=== PATIENT | male | born 1950 | race Caucasian/White ===

== ENCOUNTER → 2018-02-27 16:38 | Outpatient (CLI) | payer MEDICARE, BC, SELFPAY ==
--- NOTE | 2018-02-27 16:42 | CT_ITS ---
STUDY: CTA OF THE ABDOMINAL AORTA AND BILATERAL LOWER EXTREMITIES REASON FOR EXAM: Male, 67 years old. Follow-up exam for aortic aneurysm repair. RADIATION DOSAGE (If Supplied By Facility): CTDIvol = ( 8.2 ) mGy, DLP = ( 1550 ) mGycm TECHNIQUE: Axial CT angiography multi-detector data acquisition was obtained from the dome of the liver to the level of the feet following intravenous administration of 100 ml of Isovue 370 contrast. Axial images and MIP images were reconstructed from the axial data set. Post-processing of the angiographic images was performed, with multiplanar reformation and 3D reconstruction. Individualized dose optimization techniques were used for this CT. TECHNICAL QUALITY: Good COMPARISON: 11/30/2015. Descriptors of Narrowing: None (0%) Mild (< 50%) Moderate (50-70%) Severe (70-90%) Subtotal/Total Occlusion (90-100%) Non-Evaluable (technically non-diagnostic FINDINGS: Abdominal aorta: There again is an aortic graft extending from just below the level of the renal arteries to the level of the bifurcation and extending into the common iliac arteries bilaterally unchanged since the previous examination. Flow is seen within the graft. Peripheralclots are again seen unchanged since the prior examination. There is no evidence of leakage. The maximum AP diameter of the abdominal aortic aneurysm is approximately 5.7 cm and is unchanged. Celiac and superior mesenteric arteries: Inferior mesenteric artery: No demonstrated narrowing. Right renal artery(arteries): No demonstrated narrowing. Left renal artery(arteries): No demonstrated narrowing. Right common iliac artery: Graft is present and is patent. Right external iliac artery: Atherosclerotic calcifications with mild stenosis. Right internal iliac artery: Ectatic with calcifications and mild stenosis. Left common iliac artery: Graft is present and is patent. Left external iliac artery: Atherosclerotic calcifications without significant stenosis. Left internal iliac artery: Ectatic with calcifications and mild stenosis. RIGHT LOWER EXTREMITY Right common femoral artery: Peripheral atherosclerotic calcifications without significant stenosis. Right profundus femoris: No demonstrated narrowing. Right superficial femoral: Minimal atherosclerotic calcifications distally without significant stenosis. Right popliteal artery: No demonstrated narrowing. Right tibioperoneal trunk: No demonstrated narrowing. Right anterior tibial artery: No demonstrated narrowing. Right posterior tibial artery: No demonstrated narrowing. Right peroneal artery: No demonstrated narrowing. LEFT LOWER EXTREMITY Left common femoral artery: Minimal atherosclerotic calcifications without significant stenosis. Left profundus femoris: No demonstrated narrowing. Left superficial femoral: No demonstrated narrowing. Left popliteal artery: No demonstrated narrowing. Left tibioperoneal trunk: No demonstrated narrowing. Left anterior tibial artery: No demonstrated narrowing. Left posterior tibial artery: No demonstrated narrowing. Left peroneal artery: No demonstrated narrowing. CT/CTA Abd w/Runoff W/WO Contrast IMPRESSION: 1. Status post to iliac graft in stable position since previous exam and is patent 2. False Pass aortic aneurysm unchanged in caliber since the previous exam. 3. No significant change since previous examination. 4. No flow-limiting stenosis is seen in the lower extremities with 3 vessels runoff to the lower legs. Electronically Signed: Gilles Briggs MD at 12:30 EST Tel , Service support ,
[2018-02-27 17:06] LABS: CREATININE FINGERSTICK 1.1 mg/dL (0.70-1.30)
== END ==
PROVIDERS: Family Provider Family Medicine; PCP Family Medicine; Referring Provider Surgery; Visit Provider Surgery
DX: I71.4 Abdominal aortic aneurysm, without rupture (principal)
CPT/HCPCS: 75635; Q9967

== ENCOUNTER 2018-03-31 08:02 | Observation (INO) | payer MEDICARE, BC, SELFPAY ==
[2014-02-16 15:36] VITALS: BMI 31.5
[2018-03-20 15:08] VITALS: BP 137/61; PULSE 59; RESP 16; TEMP 36.8; O2SAT 98; BMI 33.4
[2018-03-20 16:26] LABS: International Normalized Ratio 1.1; Prothrombin Time (Protime)PT. 14.5 SECONDS (11.7-14.9)
--- NOTE | 2018-03-26 11:08 | CASEMGMT ---
Call placed to patient to discuss discharge needs after upcoming surgery. Patient plans to return home with assistance from . Outpatient physical therapy is set up at [facility], will assist with transportation. Patient already has a walker, does not have shower seat, grab bars, or toilet riser. There is a bedroom and bathroom on the 1st level of the home. Patient has approx 11 steps from the garage to get into house. Informed patient that RN-CM will likely follow up after surgery. Mellisa Umana LPN Clinical Support
[2018-03-31] VITALS (11 sets, daily range): BP systolic 104–131; BP diastolic 50–69; PULSE 52–75; RESP 16; TEMP 36.1–36.9; O2SAT 95–99; BMI 33.4
--- NOTE | 2018-03-31 | KNEE_PTH ---
PATIENT: JESUS GUSTAFSON LOC: MS3 U#:[id number] AGE/SX: 67/M ROOM: [facility] [place]03/31/[address]: Dr. Pepe Tapia DO : 1950 BED: 1 DIS: 04/01/2018 SPEC #: [id number] RECD: 03/31/18 14:53 STATUS: PRO REQ #: [id number] ASAF: 03/31/18 00:[address]: Pepe Tapia DEPT: SURGICAL PATHOLOGY RECD BY: Edgar Freitas ENTERED: 03/31/18 14:53 SP TYPE: TOTAL KNEE OTHR DR: Jud Montero DO Tissues: Knee, NOS Procedures: Decalcification bone/plaque Surgery Specimen Level IV HEADER OPERATION: Total knee replacement PRE-OP DIAGNOSIS: Osteoarthritis right knee TISSUE SUBMITTED: Bone and soft tissue MICROSCOPIC DIAGNOSIS Bone and soft tissue, right knee, total knee replacement: Pieces of bone with degenerative osteoarthritic changes. Fibroadipose tissue, fibroconnective tissue and reactive synovial tissue. SJ:milan 04/03/18 MICROSCOPIC DESCRIPTION Slides are reviewed. GROSS DESCRIPTION Received is one container designated bone and soft tissue right knee. The specimen consists of multiple fragments of chun-yellow bone measuring in aggregate 16 x 10 x 1.5 cm. Also in the specimen container are multiple fragments of yellow-white soft tissue measuring in aggregate 12 x 7 x 2.5 cm. A number of bony fragments contain articular surfaces consistent with tibial plateau and femoral condyle and displaying prominent osteophyte formation, eburnation, and bone erosion. Kidney Puller sections are submitted in two cassettes as follows: 1 - soft tissue, 2 - bone after decalcification. / AM:milan 03/31/18 TC:5 [facility]: [id number], [id number]
[2018-03-31] MEDS: oxyCODONE HCl Cr 10 MG Tablet PO (08:53)
[2018-03-31] MEDS: Celecoxib 200 MG Capsule 400 MG PO (08:54)
[2018-03-31] MEDS: Acetaminophen 500 MG Tablet 1000 MG PO ×3 (08:54→22:22)
[2018-03-31] MEDS: Lactated Ringers 1,000 ML 999 ML IV (09:20)
[2018-03-31] MEDS: Cefazolin 2 GM in 0.9% Normal Saline 100 ML IV (10:23)
--- NOTE | 2018-03-31 11:40 | PCM.IMDPSTOP ---
Immediate Post-Op Note Date of Procedure: 03/31/18 Primary Surgeon/Physician: Pepe Tapia potato chip cooker machine: Lan Espinoza Pre-Operative Diagnosis: OA Right knee Post-Operative Diagnosis: same Surgery/Procedure Performed:: Right TKR Description of Surgical Findings:: see op note Estimated Blood Loss: 20cc Specimen's removed: bone Type of Anesthesia:: Spinal ASA Class: ASA3 Severe Disease - Admit VTE Documentation VTE Present on Admission: No VTE Mechan Device Prophylaxis: SCD's, Thigh High YVONNE Hose VTE Pharm Prophylaxis ordered?: Yes
--- NOTE | 2018-03-31 11:42 | PCM.OP.BLANK ---
Operative Report Date of Procedure: 03/31/18 Primary Surgeon/Physician: Pepe Tapia transcriber: Evelio Espinoza PA-C transcriber: Pre-Operative Diagnosis: OA Right knee Post-Operative Diagnosis: same Surgery/Procedure Performed: Right TKR Estimated Blood Loss: 20 cc Specimen's Removed: bone Type of Anesthesia: spinal ASA Class: 3 Implants: [Pamela Triathlon size 5 CR femur, size 6 tibia, 35 mm patella and 9 mm CS polyethylene (all components cemented) ] Indications: Patient has severe end-stage osteoarthritis diagnosed via x-rays in the knee. They have failed all forms of conservative measures including activity modification, injections, anti-inflammatories, use of assistive device. The patient has pain that affects on a daily basis and prevents him from doing things that they enjoyed. They have elected to undergo the above procedure. The risks of the procedure were discussed at length and their questions were answered. Procedure Description: The patient was greeted in the preoperative area. The [right ] knee was then marked with a surgical marker. Patient was then taken to or Suite 2. They were administered a dose of antibiotics as well as tranexamic acid. Once adequate anesthesia was obtained and airway was secured to placed in supine position on the operating room table. A well-padded tourniquet was placed on the affected extremity. Leg was then prepped and draped in the usual sterile fashion from the knee down. Ioban was used on the skin. Surgical timeout was then performed and confirmed with all present. Six-inch Esmarch was used to examine the limb and tourniquet was then inflated to 250 mmHg. A longitudinal incision was then planned and carried out in the anterior aspect of the knee. The dissection was then carried the length of the incision the extensor mechanism was identified. Standard medial parapatellar arthrotomy was then performed revealing severe eburnation of bone and periarticular osteophytes. There is complete loss of cartilage especially in the medial compartment with varus alignment. Anterior fat pad was removed for visualization purposes and the anterior medial aspect of the tibia was skeletonized for exposure to the knee. The knee was then flexed the patella was inverted. Opening reamer was then used in the femur approximately 1 cm anterior to the attachment of the PCL. The intramedullary valgus wand was then placed in the femur set at 5? of valgus. The distal femoral cutting jig was then applied to the femur with anticipated resection of approximately 8 mm. This was then made with a oscillating saw. The sizing guide was then placed referencing off the posterior condyles and also reference off the epicondylar axis. This was measured and the appropriate size 4-in-1 cutting jig was then applied to the distal femur. Anterior posterior cuts were made followed by the anterior and posterior chamfer cuts. These bony pieces and fragments were removed and placed on the back table. Posterior retractor was then utilized and the tibia was subluxed anteriorly. Intramedullary tibial alignment jig was then applied to the tibia referencing off the medial one third of the tibial tubercle the anterior tibial spine the middle aspect of the tibiotalar joint. Also reference off patient's [place] slope. The tibial cutting jig was then pinned with anticipated resection of 2 mm off of the deficient medial tibial condyle. This cut was made with the oscillating saw. Once this was complete a laminar crane manager was utilized in both medial lateral meniscus were removed and a posterior capsular osteophytes were also removed. Posterior capsule release was performed in the posterior capsule as well as the geniculate arteries are treated with the aqua Servando. The tibia was incised and the appropriate sized tibial tray was then pinned. The femoral trial was then placed and the knee was trialed. Full flexion-extension were easily achieved. The knee seemed to balance quite nicely. Any remaining osteophytes were removed at this time. Once this was complete the patella was everted and the Raffy patella reaming device was then utilized the patella was then placed in the appropriate jig and reamer was then used to remove approximately 9 mm of the undersurface of the patella. A soft tissue remaining was in the way was removed and patella trial was then placed listed maintain excellent tracking using the no thumbs technique. The tibial tray at this point was punched to accommodate the fins of the final implant. At this point cement was mixed on the back table. The trial components were removed and the knee was copiously irrigated. Did use a cocktail of injection for postoperative pain control. The final components were then cemented in the standard fashion and excess cement was removed with cement removal tools and patellar clamp is placed in the patella. As the cement had cured in full extension tourniquet was deflated and hemostasis was perfect with Bovie cautery as well as the aqua Manus. Needle is once again trialed with different size polyethylenes to ensure the full range of motion was achieved as well as excellent balancing ligamentously was achieved. At this point the knee was copiously irrigated. Final implant was then inserted locking mechanism was engaged and confirmed to be locked. The arthrotomy was then closed with #1 Vicryl aggravate type fashion interrupted. Subcutaneous tissue was closed with 0 Vicryl and surgical maile were placed in the skin. A occlusive silver impregnated dressing was then applied followed by well-padded sterile dressing secured with an Carlito wrap. The patient was taken to the PACU in stable condition. No complications known at this time. Postoperatively we will maintain standard total knee postoperative protocol. The use of the physician volleyball assistant coach was integral during this procedure. They assisted with positioning placement of the tourniquet retracting closure and placement of the dressing. The procedure would have been much more difficult without their expertise and assistance
--- NOTE | 2018-03-31 11:46 | OP.PCM_ITS ---
Operative Report Date of Procedure: 03/31/18 Primary Surgeon/Physician: Pepe Tapia alfalfa dehydrator operator: Evelio Espinoza PA-C alfalfa dehydrator operator: Pre-Operative Diagnosis: OA Right knee Post-Operative Diagnosis: same Surgery/Procedure Performed: Right TKR Estimated Blood Loss: 20 cc Specimen's Removed: bone Type of Anesthesia: spinal ASA Class: 3 Implants: [Pamela Triathlon size 5 CR femur, size 6 tibia, 35 mm patella and 9 mm CS polyethylene (all components cemented) ] Indications: Patient has severe end-stage osteoarthritis diagnosed via x-rays in the knee. They have failed all forms of conservative measures including activity modification, injections, anti-inflammatories, use of assistive device. The patient has pain that affects on a daily basis and prevents him from doing things that they enjoyed. They have elected to undergo the above procedure. The risks of the procedure were discussed at length and their questions were answered. Procedure Description: The patient was greeted in the preoperative area. The [right ] knee was then marked with a surgical marker. Patient was then taken to or Suite 2. They were administered a dose of antibiotics as well as tranexamic acid. Once adequate anesthesia was obtained and airway was secured to placed in supine position on the operating room table. A well-padded tourniquet was placed on the affected extremity. Leg was then prepped and draped in the usual sterile fashion from the knee down. Ioban was used on the skin. Surgical timeout was then performed and confirmed with all present. Six- inch Esmarch was used to examine the limb and tourniquet was then inflated to 250 mmHg. A longitudinal incision was then planned and carried out in the anterior aspect of the knee. The dissection was then carried the length of the incision the extensor mechanism was identified. Standard medial parapatellar arthrotomy was then performed revealing severe eburnation of bone and periarticular osteophytes. There is complete loss of cartilage especially in the medial compartment with varus alignment. Anterior fat pad was removed for visualization purposes and the anterior medial aspect of the tibia was skeletonized for exposure to the knee. The knee was then flexed the patella was inverted. Opening reamer was then used in the femur approximately 1 cm anterior to the attachment of the PCL. The intramedullary valgus wand was then placed in the femur set at 5? of valgus. The distal femoral cutting jig was then applied to the femur with anticipated resection of approximately 8 mm. This was then made with a oscillating saw. The sizing guide was then placed referencing off the posterior condyles and also reference off the epicondylar axis. This was measured and the appropriate size 4-in-1 cutting jig was then applied to the distal femur. Anterior posterior cuts were made followed by the anterior and posterior chamfer cuts. These bony pieces and fragments were removed and placed on the back table. Posterior retractor was then utilized and the tibia was subluxed anteriorly. Intramedullary tibial alignment jig was then applied to the tibia referencing off the medial one third of the tibial tubercle the anterior tibial spine the middle aspect of the tibiotalar joint. Also reference off patient's [place] slope. The tibial cutting jig was then pinned with anticipated resection of 2 mm off of the deficient medial tibial condyle. This cut was made with the oscillating saw. Once this was complete a laminar bank runner was utilized in both medial lateral meniscus were removed and a posterior capsular osteophytes were also removed. Posterior capsule release was performed in the posterior capsule as well as the geniculate arteries are treated with the aqua Servando. The tibia was incised and the appropriate sized tibial tray was then pinned. The femoral trial was then placed and the knee was trialed. Full flexion-extension were easily achieved. The knee seemed to balance quite nicely. Any remaining osteophytes were removed at this time. Once this was complete the patella was everted and the Raffy patella reaming device was then utilized the patella was then placed in the appropriate jig and reamer was then used to remove approximately 9 mm of the undersurface of the patella. A soft tissue remaining was in the way was removed and patella trial was then placed listed maintain excellent tracking using the no thumbs technique. The tibial tray at this point was punched to accommodate the fins of the final implant. At this point cement was mixed on the back table. The trial components were removed and the knee was copiously irrigated. Did use a cocktail of injection for postoperative pain control. The final components were then cemented in the standard fashion and excess cement was removed with cement removal tools and patellar clamp is placed in the patella. As the cement had cured in full extension tourniquet was deflated and hemostasis was perfect with Bovie cautery as well as the aqua Manus. Needle is once again trialed with different size polyethylenes to ensure the full range of motion was achieved as well as excellent balancing ligamentously was achieved. At this point the knee was copiously irrigated. Final implant was then inserted locking mechanism was engaged and confirmed to be locked. The arthrotomy was then closed with #1 Vicryl aggravate type fashion interrupted. Subcutaneous tissue was closed with 0 Vicryl and surgical maile were placed in the skin. A occlusive silver impregnated dressing was then applied followed by well-padded sterile dressing secured with an Carlito wrap. The patient was taken to the PACU in stable condition. No complications known at this time. Postoperatively we will maintain standard total knee postoperative protocol. The use of the physician behavioral assistant was integral during this procedure. They assisted with positioning placement of the tourniquet retracting closure and placement of the dressing. The procedure would have been much more difficult without their expertise and assistance
[2018-03-31] MEDS: 0.9% NaCl Peripheral Flush Adult/Peds IV (15:27)
[2018-03-31] MEDS: Aspirin 325 MG Tablet PO (18:19)
[2018-03-31] MEDS: Cefazolin 1 GM/50 ML BAG IV (18:19)
[2018-03-31] MEDS: Atorvastatin Calcium 40 MG Tablet PO (22:22)
[2018-03-31] MEDS: Senna/Docusate Sodium 1 Tablet 2 TABLET PO (22:22)
[2018-03-31] MEDS: Doxazosin 4 MG Tablet PO (22:23)
[2018-04-01 02:14] VITALS: BP 120/60; PULSE 55; RESP 16; TEMP 37.2; O2SAT 94
[2018-04-01] MEDS: Cefazolin 1 GM/50 ML BAG IV (02:17)
[2018-04-01] MEDS: Acetaminophen 500 MG Tablet 1000 MG PO ×2 (05:47→13:27)
[2018-04-01] MEDS: Levothyroxine 137 MCG Tablet PO (05:47)
[2018-04-01] MEDS: 0.9% NaCl Peripheral Flush Adult/Peds IV (05:49)
[2018-04-01 05:50] LABS: Hematocrit 33.9 % (40-54); Hemoglobin 11.1 g/dl (13.0-16.5); Mean Corp Hgb Conc 32.7 g/gl (32-36); Mean Corpuscular Hgb 32.6 pg (27.0-32.0); Mean Corpuscular Volume 99.4 fL (80-94); Mean Platelet Vol. 9.9 fl (6.2-12.0); Platelet Count 184 K/mm3 (150-450); RBC Distribution Width SD 49.2 fl (35.1-43.9); Red Blood Count 3.41 M/mm3 (4.6-6.2); White Blood Count 7.5 K/mm3 (4.4-11.0)
[2018-04-01 06:02] LABS: Scan Indicated on CBC? Y/N NO
[2018-04-01 06:08] LABS: Anion Gap 8 (5-15); BUN 14 mg/dL (7-18); Chloride 105 mmol/L (98-107); Creatinine, Serum 0.93 mg/dL (0.70-1.30); EST Glomerular Filtration Rate 86 mL/min (>60); Est Glom Filt Rate - Afr Amer 104 mL/min (>60); Estimated Creatinine Clearance 74.57 ml/min; Glucose 95 mg/dL (74-106); Potassium 3.6 mmol/L (3.5-5.1); Sodium Level 140 mmol/L (136-145)
[2018-04-01 07:11] VITALS: PULSE 60
[2018-04-01 07:18] VITALS: BP 120/60; PULSE 53; RESP 18; TEMP 36.6; O2SAT 95
[2018-04-01] MEDS: Senna/Docusate Sodium 1 Tablet 2 TABLET PO (07:24)
[2018-04-01] MEDS: Ferrous Sulfate 325 MG Tablet PO (07:25)
[2018-04-01] MEDS: Aspirin 325 MG Tablet PO (07:25)
--- NOTE | 2018-04-01 07:43 | PN.ORTHO_ITS ---
Subjective: Patient sitting at bedside eating breakfast. Pain well managed. Denies chest pain, shortness of breath, calf pain, nausea vomiting. Patient states he is ready for discharge home no other complaints Objective: Dressings clean dry intact. Negative signs or symptoms of DVT. Vital signs labs within normal limits. Patient is afebrile neurovascular is otherwise intact. Patient speaking full sentences with no obvious respiratory distress. - Physical Exam General: Alert, Oriented x3, Cooperative HEENT: PERRLA Oral: Moist Mucosa Neurological: Cranial nerves II-XII grossly intact Psych/Mental Status: Normal Affect, Alert and oriented to time, place, person, mood and affect Vital Signs Temp Pulse Resp BP Pulse Ox 98 F 53 L 18 120/60 95 04/01/18 07:18 04/01/18 07:18 04/01/18 07:18 04/01/18 07:18 04/01/18 07:18 Oxygen Flow Rate (L/min) 2 Oxygen Delivery Method Room Air Weight: 99.79 kg Body Mass Index (BMI) 33.4 Intake and Output for Last 24 Hours 03/30/18 03/31/18 04/01/18 23:59 23:59 23:59 Intake Total 2700 / 2700 822 / 822 Output Total 500 / 500 650 / 650 Balance 2200 / 2200 172 / 172 Laboratory Tests Past 24 Hrs 04/01/18 04/01/18 05:26 05:26 WBC 7.5 RBC 3.41 L Hgb 11.1 L Hct 33.9 L MCV 99.4 H MCH 32.6 H MCHC 32.7 RDW 14.0 RDW Differential 49.2 H Plt Count 184 MPV 9.9 Sodium 140 Potassium 3.6 Chloride 105 Carbon Dioxide 27.0 Anion Gap 8 BUN 14 Creatinine 0.93 Estim Creat Clear Calc 74.57 Est GFR (MDRD) Af Amer 104 Est GFR (MDRD) Non-Af 86 BUN/Creatinine Ratio 15.0 Glucose 95 Calcium 8.0 L Medical Necessity - Tobacco Use Smoking Status: Current every day smoker Assessment/Plan All Active Problems (Last Reviewed 03/10/18 @ 14:12 by Emily Mantilla) Tobacco dependence (Acute) H/O endovascular stent graft for abdominal aortic aneurysm (Acute) Status post right total knee arthroplasty Plan 1. Continue all pain medications as prescribed 2. Continue physical therapy today weight-bear as tolerated with walker 3. Will restart his Plavix as prescribed preoperatively for his postop DVT prophylaxis. Discontinue aspirin after his final dose today. 4. Encourage incentive spirometry 5. Follow-up Dr. Tapia as scheduled 6. We will continue with outpatient therapy at [facility] 7. Discharge home today after p.m. therapy
--- NOTE | 2018-04-01 08:00 | DCINST_ITS ---
Discharge Diet: No Restrictions Discharge Activity: May Not Drive, May Shower, Use Walker May shower in (days): 3 Ice area for (Minutes): 20 - each hour while awake. Weight Bearing Status: Weight bearing as tolerated Elevate: Operative Extremity Additional Activity Instructions:: Wear elastic stockings for 2 weeks after your surgery. Call your doctor if your incision/area has: Continuous Slow Oozing, Sudden Increased Bleeding, Increased Pain/ Swelling, Increased Redness, Foul Smelling Discharge Call your doctor if you observe: Fever of 101 or Higher, Coldness, Increased Pain - in extremity, Numbness or Tingling, Change in Color, Calf discomfort, Uncontrolled pain Change Dressing in (Days):: 1 - and daily as needed. Remove Dressing in (days):: 8 Cleanse incision/area with: Soap & Water Allergies/Adverse Reactions: Allergies No Known Allergies Allergy (Verified 03/20/18 15:01) Medications to take at Discharge atorvastatin 40 mg tablet 40 mg PO DAILY 03/10/18 clopidogrel 75 mg tablet 75 mg PO DAILY 03/10/18 levothyroxine 137 mcg tablet 137 mcg PO DAILY 03/10/18 Doxazosin Mesylate [Cardura] 4 mg PO QHS 03/20/18 Ferrous Sulfate [Iron] 325 mg PO DAILY 03/20/18 Acetaminophen [Tylenol Extra Strength] 500 - 1,000 mg PO Q6H PRN #90 tab 04/01/18 Oxycodone [Oxyir] 5 - 10 mg PO Q4H PRN PRN 7 Days #90 tab 04/01/18 The following prescriptions were given: Oxycodone [Oxyir] 5 - 10 mg PO Q4H PRN PRN 7 Days #90 tab PRN Reason: Mod-Severe Pain (-01/29) Acetaminophen [Tylenol Extra Strength] 500 - 1,000 mg PO Q6H PRN #90 tab Primary Care Physician: Jud Montero MD [Primary Care Provider] - Test Results: Test results from this visit will be discussed in further detail at your follow- up appointment, if applicable. Please Follow Up With: Pepe Tapia, When: SEE PINK SHEET
--- NOTE | 2018-04-01 11:10 | CASEMGMT ---
RN MARY GRACE Face to Face with patient for initial transition planning/care coordination assessment. RN MARY GRACE introduced self and role at [facility]. Patient sitting in chair, alert and oriented. Patient willing to participate in assessment and is able to answer all questions appropriately. Care providers, pharmacy, and demographics verified. Patient wishes to discharge home and is setup with [facility] for outpatient therapy with providing transportation. Patient states he has no further needs or concerns at this time. CM to follow for discharge planning needs that may arise. PCP: Jud Montero Specialists: Acacia primer boxer Preferred Pharmacy: [facility] Insurance: [employer] Prescription Benefit: Yes Living Will/HPOA: Yes, Gabi Rivera LNOK: Living Arrangements: Lives with in house, bed and bath on 1st Transportation: DME/HHC: Walker Disposition Plan: Patient to discharge home with outpatient therapy, family support, and follow-up plans in place. Mireya BULLOCK, RN, CM
[2018-04-01 13:24] VITALS: BP 131/57; PULSE 60; RESP 18; TEMP 36.7; O2SAT 96
== END 2018-04-01 14:00 | disposition home or self-care (01) ==
PROVIDERS: Anesthesiology; Admitting Provider Orthopaedic Surgery; Family Provider Family Medicine; PCP Family Medicine; Referring Provider Orthopaedic Surgery; Visit Provider Orthopaedic Surgery
PROC: (CPT 27447; principal; 2018-03-31 09:45)
DX: M17.11 Unilateral primary osteoarthritis, right knee (principal); Z79.02 Long term (current) use of antithrombotics/antiplatelets; Z79.899 Other long term (current) drug therapy; E07.9 Disorder of thyroid, unspecified; E78.00 Pure hypercholesterolemia, unspecified; F17.210 Nicotine dependence, cigarettes, uncomplicated; G25.81 Restless legs syndrome; K44.9 Diaphragmatic hernia without obstruction or gangrene; D64.9 Anemia, unspecified; I71.4 Abdominal aortic aneurysm, without rupture; R01.1 Cardiac murmur, unspecified; D68.9 Coagulation defect, unspecified
CPT/HCPCS: 01400; 27447; 64447; 36415; 80048; 85027; 85610; 85730; 87081; 88305; 88311; 96365; 96366; 97110; 97161; 97165; 97530; 99218; 99406; C1776; J7120; A4216; G0378; G0379; G8978; G8979; G8987; G8988

== ENCOUNTER → 2018-12-25 | Outpatient (CLI) | payer MEDICARE, BC, SELFPAY ==
[2018-03-31 08:49] VITALS: BMI 33.4
[2018-12-25 17:39] LABS: Absolute Lymphocyte Count 1.96 X10^3/uL (0.83-4.51); Absolute Neutrophil Count 5.5 X10^3/uL (2.0-7.7); Basophil# 0.05 X10^3/uL; Basophil% 0.6 % (0-1); Eosinophil# 0.16 X10^3/uL; Eosinophils% 1.9 % (0-5); Hematocrit 41.2 % (40-54); Hemoglobin 13.6 g/dL (13.0-16.5); Lymphocyte # 1.96 X10^3/ul (4.0); Lymphocyte % 22.8 % (19-41); Mean Corpuscular Hgb 32.2 pg (27.0-32.0); Mean Corpuscular Volume 97.6 fL (80-94); Mean Platelet Vol. 10.5 fl (6.2-12.0); Monocyte% 10.5 % (0-10); NRBC Flagged by Analyzer 0 % (0-5); Neutrophil # 5.48 X10^3/uL (2.7-7.7); Neutrophil % 63.7 % (47-70); Platelet Count 214 K/mm3 (150-450); RBC Distribution Width CV 14.1 % (11.6-14.6); RBC Distribution Width SD 50.7 fl (35.1-43.9); Red Blood Count 4.22 M/mm3 (4.6-6.2); White Blood Count 8.6 K/mm3 (4.4-11.0)
[2018-12-25 17:44] LABS: CRP < 2.90 mg/L (0.0-3.0)
[2018-12-25 17:47] LABS: Erythrocyte Sedimentation Rate 28 mm/hr (0-20)
== END | disposition home or self-care (01) ==
LOC: LAB 16:53
PROVIDERS: Referring Provider Physician Assistant; Visit Provider Physician Assistant
DX: Z96.651 Presence of right artificial knee joint (principal)
CPT/HCPCS: 36415; 85025; 85652; 86140

== ENCOUNTER → 2019-05-25 | Outpatient (CLI) | payer MEDICARE, BC, SELFPAY ==
--- NOTE | 2019-05-25 13:50 | CT_ITS ---
STUDY: CT LEFT KNEE WITHOUT CONTRAST REASON FOR EXAM: Male, 68 years old. LT KNEE OSTEOARTHRITIS -- LYDIA KNEE RADIATION DOSAGE (If Supplied By Facility): CTDIvol = ( 32.13 ) mGy, DLP = ( 2005.28 ) mGycm TECHNIQUE: Transaxial CT imaging of the knee was performed. Coronal and sagittal images were reformatted. Axial and coronal images of the hip joint and ankle joint were obtained as well as per protocol. Individualized dose optimization techniques were used for this CT. COMPARISON: None. FINDINGS: The patient is status post medial hemiarthroplasty of the left knee joint. Moderate degree of joint space narrowing and subchondral cyst formation along the lateral tibial plateau as well as the lateral femoral condyle. The left hip joint is unremarkable. The left ankle joint is unremarkable as well. The soft tissues are unremarkable. CT/Extremity Lower without Contra IMPRESSION: Status post medial hemiarthroplasty of the left knee. Moderate degree of joint space narrowing and subchondral cyst formation of the lateral tibial plateau and lateral femoral condyle. Electronically Signed: Ramy Morris, at 15:27 EST , Service support ,
== END | disposition home or self-care (01) ==
PROVIDERS: PCP Family Medicine; Referring Provider Specialist; Visit Provider Specialist
DX: M17.12 Unilateral primary osteoarthritis, left knee (principal)
CPT/HCPCS: 73700

== ENCOUNTER 2019-06-10 08:03 | Inpatient (IN) | payer MEDICARE, BC, SELFPAY ==
[2018-03-31 08:49] VITALS: BMI 33.4
--- NOTE | 2019-05-15 22:10 | PCM.HP.BLA ---
History and Physical History and Physical [facility] Patient Name: Paras Rivera : 1950 From: EFFIE GONZALES PA-C DATE OF SURGERY: 06/10/2019 SCHEDULED PROCEDURE: revision left unicompartmental knee replacement to a total knee arthroplasty HISTORY OF PRESENT ILLNESS: Preoperative history and physical exam was performed on May 15, 2019. This is a 68-year-old male who has had ongoing pain in the left knee. Pain has been present for approximately one year. Patient has had a previous left unicompartmental knee replacement by Dr. Dougherty on May 12, 2008. He has also undergone a right total knee arthroplasty by Dr. Pepe Tapia on March 31, 2018. He is doing well with regards to the right knee. Patient states the left knee pain has progressively become worse. It is been constant and aching. He has increased pain going up and down stairs and walking. Pain is increased with getting dressed. He has tried rest, ice, elevation with minimal relief. Patient's pain is primarily located in the posterior knee. He also complains of lateral joint line pain and anteriorly with stairs. Patient has had lab work which did reveal elevated ESR and CRP. An aspiration was attempted but there was not enough fluid to analyze. Based on the appearance of the fluid and current labs Dr. Hill recommended proceeding with revision. Patient has also had dental work and has dentures now. Patient has a medical history pertinent for airway disease, previous heart stent in 2010, as well as abdominal aorta repair and stent in 2012. Patient does take Plavix. He does seek phd intern Dr. Pina. We are seeking clearance from the phd intern and the primary care physician Dr. Ruiz. Patient currently denies any chest pain, shortness of breath, fevers chills, recent infections. After discussion with Dr. Gee Hill, the patient does wish to proceed with a revision left unicompartmental knee replacement to a left total knee arthroplasty. REVIEW OF SYSTEMS: ROS: Const: Reports weight change and lost 30 lbs in 12 months, but denies anorexia, anxiety, change in appetite, fever, hard of hearing and vision problems. CV: Reports heart murmur, but denies chest pain, irregular heartbeat and peripheral vascular disease. Resp: Reports cough, but denies asthma, pneumonia, sleep apnea, SOB, tuberculosis and wheezing. GI: Denies constipation, diarrhea, difficulty swallowing, heartburn, nausea, bloody stools and vomiting. : Urinary: denies incontinence. Musculo: Reports limp, stiffness, trouble walking and weakness, but denies leg swelling. Skin: Denies Raynaud's, history of shingles and tattoo. Neuro: Denies ambulatory dysfunction, dizziness, numbness/tingling and tremor. Psych: Denies anxiety, depression, insomnia, mental illness and stress. Shon/Lymph: Reports bleeding/bruising tendency, but denies anemia and past transfusion. Reviewed, no changes. PAST MEDICAL HISTORY: Advance Care Plan: Other Directive, POA Effective Date: 08/10/2015 Other Directive, LIVING WILL Effective Date: 08/10/2015 PMH: Medical Problems: Thyroid Disease, Abdominal Anurysm, Hypercholesterolemia, Arthritis Accidents: None Surgical Hx: Hernia Repair - 2x LT Knee Uncompartmental - (05/12/2008) [facility] @ [facility] Heart Stent, Jose Manuel Cataract SX Knee Replacement RT - (03/31/2018) [email or web address] Anesthesia Complications: None Assistive Devices: Glasses, Dentures - partial upper Reviewed, no changes. 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 Personal Habits: Cigarette Use: Currently smokes - 1 Pack/day since age teenage.Alcohol: Occasionally.Drug Use: Denies Use.Enjoy Exercising: Never Exercises. Reviewed, no changes. VITALS: Ht: 68 Wt: 204lb Wt k.534 BMI: 31.0 BP: 130/74 Pulse: 68 Resp: 12 T: 96.4 T: 35.8C ALLERGIES: No Known Drug Allergy MEDICATIONS: Synthroid 137mcg 1 po daily, Clopidogrel 75 mg 1 tab PO daily, Cardura 4 mg 1 tab PO daily, Atorvastatin Calcium 40 mg take one tablet by mouth once daily, Tylenol Extra Strength 500 mg 2 by mouth every 8 hours PRE-OP EXAM: General appearance:NORMAL Other: Eyes: Conjunctivae and lids: NORMAL Pupils: ERR Ears, Nose, Mouth, and Throat: NORMAL Other: Inspection of lips, teeth and gums: NORMAL Other: Neck: Examination of neck: no masses noted. Respiratory: Assessment of respiratory effort: NORMAL Other: Auscultation of lungs: clear to auscultation no wheezes, rhonchi or rales. Cardiovascular: Auscultation of heart: regular rate and rhythm, positive systolic murmur Exam of carotid arteries: NORMAL Other: Gastrointestinal: Exam of abdomen: soft, nontender, nondistended bowel sounds present. PHYSICAL EXAMINATION: Patient walks with an antalgic gait. Previous incision on the left knee is well-healed without any erythema or signs of infection. There is tenderness to palpation of the mediolateral joint line. Range of motion: Lacks 3 of full extension to 95 flexion with crepitus. Mild effusion. Stable to varus valgus stress test. Sensation intact to light touch. IMAGING STUDIES: Previous x-rays of the left knee were reviewed and compared to previous films as well as 2011 which shows progressive lateral joint space narrowing with subchondral sclerosis and osteophyte formation with bony erosions with progressive severe lateral compartment osteoarthritis. There is presence of a medial unicompartmental knee replacement. Previous ESR and CRP was obtained on December 25, 2018. ESR 28 and CRP less than 2.9 IMPRESSION: 1. Previous left unicompartmental knee replacement with progressive lateral compartment osteoarthritis 2. Thyroid disease 3. History of the abdominal aneurysm with repair and stent 2012 4. History of heart stent 2010 5. Hypercholesterolemia PLAN: Dr. Gee Hill did discuss and review with the patient all treatment options including surgical versus nonsurgical options. Patient does wish to proceed with the above-stated procedure. Potential risks, benefits, and complications of the procedure were discussed in detail including but not limited to , infection, nerve and blood vessel damage, persistent pain, numbness, tingling, paresthesias, blood clot, pulmonary embolism, and requirement for possible further surgery. The patient expressed full understanding and has no further questions for the doctor. Patient does agree to proceed with the above-stated procedure and has signed the surgery consent form. This dictation was created using voice recognition software. Phonetic and/or grammatical errors may exist. ___ I have re-examined the patient. There are no clinical changes since date of exam. ___ See progress notes for changes. ___ Dictated on admission Date: Time: Signature:
[2019-05-25 13:31] VITALS: BP 138/68; PULSE 62; RESP 16; TEMP 36.6; O2SAT 97; BMI 32.3
[2019-05-25 14:15] LABS: Absolute Lymphocyte Count 1.36 X10^3/uL (0.83-4.51); Absolute Neutrophil Count 5.2 X10^3/uL (2.0-7.7); Basophil# 0.03 X10^3/uL; Basophil% 0.4 % (0-1); Eosinophil# 0.12 X10^3/uL; Eosinophils% 1.6 % (0-5); Hematocrit 42.2 % (40-54); Hemoglobin 13.8 g/dL (13.0-16.5); Lymphocyte # 1.36 X10^3/ul (4.0); Lymphocyte % 18.5 % (19-41); Mean Corp Hgb Conc 32.7 g/dL (32-36); Mean Corpuscular Hgb 32.2 pg (27.0-32.0); Mean Corpuscular Volume 98.4 fL (80-94); Mean Platelet Vol. 10.8 fl (6.2-12.0); Monocyte# 0.62 X10^3/uL; Monocyte% 8.4 % (0-10); NRBC Flagged by Analyzer 0 % (0-5); Neutrophil # 5.18 X10^3/uL (2.7-7.7); Neutrophil % 70.6 % (47-70); Platelet Count 204 K/mm3 (150-450); RBC Distribution Width CV 13.4 % (11.6-14.6); RBC Distribution Width SD 48.1 fl (35.1-43.9); Red Blood Count 4.29 M/mm3 (4.6-6.2); White Blood Count 7.4 K/mm3 (4.4-11.0)
[2019-05-25 14:50] LABS: Anion Gap 5 (5-15); BUN 22 mg/dL (7-18); BUN/Creat Ratio 27.8 RATIO (10-20); Chloride 109 mmol/L (98-107); Creatinine, Serum 0.79 mg/dL (0.70-1.30); EST Glomerular Filtration Rate 103 mL/min (>60); Est Glom Filt Rate - Afr Amer 125 mL/min (>60); Glucose 89 mg/dL (74-106); Potassium 4.1 mmol/L (3.5-5.1); Sodium Level 140 mmol/L (136-145); Thyroid Stim Hormone (TSH) 1.12 uIU/mL (0.358-3.74)
--- NOTE | 2019-05-28 16:00 | EKG12_ITS ---
Test Reason : PREOP Blood Pressure : / mmHG Vent. Rate : 061 BPM Atrial Rate : 061 BPM P-R Int : 174 ms QRS Dur : 088 ms QT Int : 426 ms P-R-T Axes : -03 022 -10 degrees QTc Int : 428 ms Normal sinus rhythm Possible Inferior infarct , age undetermined Abnormal ECG Confirmed by ISHMAEL HEBERT, OLU ([id number]), index editor KHANH JACKSON ([id number]) on 06/01/2019 10:36:35 AM Referred By: Gee Hill Confirmed By:AIDA QUIÑONES MD
[2019-05-28 17:19] LABS: Erythrocyte Sedimentation Rate 19 mm/hr (0-20)
[2019-05-28 18:35] LABS: Albumin, Serum 3.5 g/dL (3.2-5.0); CRP < 2.90 mg/L (0.0-3.0)
[2019-06-10] VITALS (11 sets, daily range): BP systolic 100–118; BP diastolic 57–74; PULSE 64–82; RESP 14–18; TEMP 35.9–36.6; O2SAT 96–100; BMI 32.1
[2019-06-10 08:30] LABS: Bedside Glucose 119 mg/dL (70-110)
[2019-06-10] MEDS: Acetaminophen 500 MG Tablet 1000 MG PO ×3 (08:37→21:25)
[2019-06-10] MEDS: Gabapentin 600 MG Tablet PO (08:37)
[2019-06-10] MEDS: Lactated Ringers 1,000 ML 100 ML IV ×2 (08:40→13:19)
[2019-06-10] MEDS: Cefazolin 2 GM in 0.9% Normal Saline 100 ML IV (10:14)
[2019-06-10] MEDS: dexAMETHasone 10 MG/ML Vial IV (10:20)
--- NOTE | 2019-06-10 12:10 | OP.PCM_ITS ---
Report of Operation Date of Procedure: 06/10/19 Pre-Operative Diagnosis: Painful left medial compartment partial knee repl acement, progression of osteoarthritis Post-Operative Diagnosis: Painful left medial compartment partial knee replacement, progression of osteoarthritis Surgery/Procedure Performed:: Revision left total knee replacement entire tibial and femoral components Description of Surgical Findings:: Stable knee with good patella tracking good bone stock. machine pack assembler: Mimi Nicole Type of Anesthesia:: Spinal Anesthesiologist: Vikas Mccallum Special Medications: 2 g Ancef, 2 g TXA lavage in the wound prior to closure, 10 mg Decadron, joint cocktail (5 mg Duramorph, 30 mL of 0.5% Ropivicaine, 1000 units of epinephrine, 30 mg of Toradol) Specimen's removed: 3 separate specimens were sent to microbiology Estimated Blood Loss (mL): 100 Fluids Replaced: 900 mL crystalloid Description of Procedure: Implants used: 1. Pamela size 6 press-fit triathlon cruciate retaining distal femoral component 2. [place] size 6 press-fit tibial baseplate 3. Pamela X3 12 mm CS polyethylene 4. Pamela X3 35 mm asymmetric patella Brief history operative indications: 68-year-old m with history of left knee medial compartment partial knee replacement with progression of lateral and patellofemoral osteoarthritis with radiographic findings with loss of joint space, osteophyte formation and subchondral sclerosis. Failed conservative measures as mentioned in the H&P and work-up for infection was negative. Discussion of revision to total knee arthroplasty as well as risk and benefits were discussed the patient including but not limited to blood loss, DVTs, PEs, neurovascular damage, general risk of anesthesia including loss of life, and stiffness or instability were discussed with patient. Patient demonstrated understanding and was able to sign informed consent. Procedure: On the date of procedure patient's left lower extremity was marked in the preoperative area. The patient was then taken back to the operating room where the patient was placed on the table in the supine position. All bony prominences were identified a well-padded. Anesthesia assumed control of the C-spine and airway and remained controlled throughout the remainder of the procedure. A tourniquet was placed on the left upper thigh and the leg was prepped in a sterile fashion. The surgeon then scrubbed at this time .Upon reentering the room left lower extremity was draped in a standard orthopedic fashion. A timeout was then called and everyone agreed upon the side, the site, the procedure to be performed, patient's identity and antibiotics given. Esmarch bandage was used to exsanguinate the extremity and the tourniquet was placed up to 250 mmHg with the knee in flexion. A midline skin incision was made and sharp dissection was taken down through skin subcutaneous tissue and fat. The standard medial parapatellar incision was made and the patella was subluxed laterally. The standard deep MCL release was done and the fat pad was resected. Next our attention was directed to the femur. Navigation pins were placed, navigation was registered. At this time we were able to tension the soft tissues using the CT scan and soft tissues intraoperatively we balance the knee. Appropriate soft tissue releases and adjustments of the implants were made. Knee was flexed up and the femoral component was removed using an osteotome. Excess cement was debrided. The tibial component was then removed using an osteotome, excess cement was debrided. The bone stock was good. We elected to make our tibia cut just at the level of the previous tibia cut leaving us adequate bone stock. The tibia was cut for a size 6 tibia. We then cut the femur for a size 6 femur, Based on the robotic operative plan. The knee was flexed to 90 degrees and the soft tissues and posterior osteophytes were removed from the joint. 40 cc of the periarticular injection was injected into the posterior medial corner of the joint. The appropriate trials were then placed on the femur and tibia. A trial polyethylene was trialed to ensure proper balancing and stability of the knee. Patella tracking, was then verified and corrected appropriately as needed. The appropriate tibial internal rotation was then marked with a bovie. Our attention was then directed to the patella. The patella was everted and a flat resection was made. The lug holes were drilled and the patella trial was placed. Patellar tracking was checked and deemed appropriate. Once we were happy lug holes were drilled for the femur and trial components were removed. Cement was mixed at this time and the tourniquet was let down the tibia was subluxed and pinned into place and the keel was punched and the canal was reamed. Final components were verified and opened, and cement was mixed in a vacuum. [employer] Simplex cement was used. The wound was copiously irrigated with normal saline. When the cement was ready the press-fit components were impacted into place starting with the tibia, femur and finally the patella cemented into place. The trial poly component was placed and the knee was placed in full extension. All excess cement was removed in the process. Once the cement had cured the tracking, alignment and balance were verified and a size 12 mm CS polyethylene component was placed. Once the final components were placed the wound was copiously irrigated with normal saline solution and the periarticular injection was given. The wound was closed in a layer vizcarra fashion using #1 vicryl interrupted sutures for the arthrotomy, 2-0 interrupted Vicryl suture for the subcuticular layer and maile for final skin closure. A sterile compressive dressing was then placed. The patient was then awakened from anesthesia, transferred to the [place] and transferred to the PACU for recovery. Post op plan DVT ppx: ASA 81mg, thigh high compression stockings Follow up: in office in 2 weeks for wound check PT: to start POD #0 at hospital, outpatient PT should be arranged. Cultures: Patient will remain on doxycycline for 1 week as we follow cultures. Grafts/Implants Used: [place] triathlon - Complications No intraoperative complications - Admit VTE Documentation VTE Present on Admission: No VTE Mechan Device Prophylaxis: SCD's, Thigh High YVONNE Hose VTE Pharm Prophylaxis ordered?: Yes
--- NOTE | 2019-06-10 12:45 | RAD_ITS ---
STUDY: X-RAY - LEFT KNEE REASON FOR EXAM: Male, 68 years old. POST OP TECHNIQUE: 2 view(s) of the knee. COMPARISON: None. FINDINGS: Status post left total knee arthroplasty with postsurgical changes and skin maile noted. Alignment appears anatomic. No acute fracture is identified. Moderate soft tissue swelling. IMPRESSION: Status post left total knee arthroplasty. Electronically Signed: Mynor Harden, at 14:01 EST Tel , Service support , RAD/Knee 1 or 2 Views
[2019-06-10] MEDS: Scopolamine 1mg/72hr Patch 1 PATCH TD (13:24)
[2019-06-10] MEDS: Aspirin 81 MG TAB.CHEW PO (16:32)
[2019-06-10] MEDS: 0.9% Saline Lock 10 ML Syringe IV (16:32)
[2019-06-10] MEDS: Ensure Surgery 237 ML LIQUID PO (16:57)
[2019-06-10] MEDS: Cefazolin 1 GM/50 ML BAG IV (18:22)
[2019-06-10] MEDS: Senna/Docusate Sodium 1 Tablet 2 TABLET PO (21:25)
[2019-06-10] MEDS: Clopidogrel Bisulfate 75 MG Tablet PO (21:25)
[2019-06-10] MEDS: Doxycycline 100 MG CAPSULE PO (21:25)
[2019-06-10] MEDS: Levothyroxine 137 MCG Tablet PO (21:26)
[2019-06-10] MEDS: Atorvastatin Calcium 40 MG Tablet PO (21:26)
[2019-06-10] MEDS: Doxazosin 4 MG Tablet PO (21:26)
[2019-06-11] MEDS: Cefazolin 1 GM/50 ML BAG IV (01:36)
[2019-06-11 02:20] VITALS: BP 96/43; PULSE 52; RESP 16; TEMP 36.4; O2SAT 97
[2019-06-11 05:41] LABS: Mean Corp Hgb Conc 32.4 g/dL (32-36); Mean Corpuscular Hgb 31.9 pg (27.0-32.0); Mean Corpuscular Volume 98.6 fL (80-94); Mean Platelet Vol. 10.7 fl (6.2-12.0); Platelet Count 168 K/mm3 (150-450); RBC Distribution Width CV 13.6 % (11.6-14.6); RBC Distribution Width SD 49.1 fl (35.1-43.9); Red Blood Count 3.45 M/mm3 (4.6-6.2); White Blood Count 15.7 K/mm3 (4.4-11.0)
[2019-06-11 05:50] LABS: Anion Gap 4 (5-15); BUN 15 mg/dL (7-18); BUN/Creat Ratio 19.8 RATIO (10-20); Calcium,Total 8.8 mg/dL (8.5-10.1); Chloride 107 mmol/L (98-107); Creatinine, Serum 0.76 mg/dL (0.70-1.30); EST Glomerular Filtration Rate 109 mL/min (>60); Est Glom Filt Rate - Afr Amer 132 mL/min (>60); Glucose 106 mg/dL (74-106); Potassium 3.9 mmol/L (3.5-5.1); Sodium Level 138 mmol/L (136-145)
[2019-06-11] MEDS: Acetaminophen 500 MG Tablet 1000 MG PO ×3 (06:10→21:05)
[2019-06-11 06:40] VITALS: BP 108/59; PULSE 57; RESP 18; TEMP 36.4; O2SAT 98
[2019-06-11] MEDS: Ensure Surgery 237 ML LIQUID PO ×3 (08:00→16:53)
[2019-06-11] MEDS: Aspirin 81 MG TAB.CHEW PO ×2 (08:01→16:53)
[2019-06-11] MEDS: Famotidine 20 MG Tablet PO (09:29)
[2019-06-11] MEDS: Doxycycline 100 MG CAPSULE PO ×2 (09:29→21:04)
[2019-06-11] MEDS: Senna/Docusate Sodium 1 Tablet 2 TABLET PO ×2 (09:30→21:05)
--- NOTE | 2019-06-11 10:35 | CASEMGMT ---
HAMILTON BRODY Face to Face with patient for initial transition planning/care coordination assessment. RN MARY GRACE introduced self and role at [facility]. Patient sitting in chair, alert and oriented. Patient willing to participate in assessment and is able to answer all questions appropriately. Care providers, pharmacy, and demographics verified. Patient wishes to discharge home and is setup for outpatient therapy at [facility] [place]. Patient states he has no further needs or concerns at this time. CM to follow for discharge planning needs that may arise. PCP: Sara Specialists: amanda Hill; Tamia, personal coach Preferred Pharmacy: [facility] Insurance: [employer] Prescription Benefit: yes Living Will/HPOA: yes, Layla Rivera LNOK: Living Arrangements: Patient lives with in 2 story home with bed and bath on main level. 10 steps with railing to get to main level. Patient independent at home prior to surgery. Transportation: DME/HHC: Patient has shower chair, raised toilet, and walker. Patient is setup for outpatient therapy at [facility] [place] for Saturday. Disposition Plan: Patient to discharge home with outpatient therapy, family support, and follow-up plans in place. Mireya BULLOCK, RN, CM
[2019-06-11 10:40] VITALS: BP 105/53; PULSE 58; RESP 16; TEMP 36.6; O2SAT 99
--- NOTE | 2019-06-11 10:45 | PN.ORTHO_ITS ---
Subjective: The patient was sitting in bedside chair upon examination. Patient denies any chest pain, shortness of breath, dizziness, lightheadedness, nausea or vomiting, or calf pain. Pain is controlled on medications. No adverse overnight events. Patient overall is doing very well with regards to the pain. He has tolerated therapy and does wish to try to go home today. He did have couple low readings of blood pressure but denies any chest pain, shortness of breath, dizziness, lightheadedness. He had no symptoms with up walking with therapy. Objective: Vital signs stable and afebrile. Patient is able to plantarflex and dorsiflex actively. Sensation is intact to light touch to saphenous, sural, superficial and deep p eroneal, and tibial distribution. Dressing is clean dry and intact. Negative Homans bilaterally, negative signs and symptoms of DVT. - Physical Exam Vitals/I&O's: Vital Signs Temp Pulse Resp BP Pulse Ox 97.6 F L 57 L 18 108/59 L 98 06/11/19 06:40 06/11/19 06:40 06/11/19 06:40 06/11/19 06:40 06/11/19 06:40 Oxygen Flow Rate (L/min) 6 Oxygen Delivery Method Room Air Weight: 95.8 kg Body Mass Index (BMI) 32.1 Intake and Output for Last 24 Hours 06/09/19 06/10/19 06/11/19 23:59 23:59 23:59 Intake Total 2630 / 3430 2450 / 2450 Balance 2630 / 3430 2450 / 2450 General: Alert, Oriented x3, Cooperative, No apparent distress Laboratory Results 06/11/19 05:04: WBC 15.7 H, RBC 3.45 L, Hgb 11.0 L, Hct 34.0 L, MCV 98.6 H, MCH 31.9, MCHC 32.4, RDW Std Deviation 49.1 H, RDW Coeff of Katlin 13.6, Plt Count 168, MPV 10.7 06/11/19 05:04: Sodium 138, Potassium 3.9, Chloride 107, Carbon Dioxide 27.0, Anion Gap 4 L, BUN 15, Creatinine 0.76, Estim Creat Clear Calc 68.40, Est GFR (MDRD) Af Amer 132, Est GFR (MDRD) Non-Af 109, BUN/Creatinine Ratio 19.8, Glucose 106, Calcium 8.8 Current Medications Acetaminophen (Tylenol) 1,000 mg PO Q8 PENDING SALE TO [facility] Last Admin: 06/11/19 06:10 Dose: 1,000 mg Documented by: [facility], [facility] Last Admin: 06/11/19 08:01 Dose: 81 mg Documented by: Atorvastatin Calcium (Lipitor) 40 mg PO QHS PENDING SALE TO [facility] Last Admin: 06/10/19 21:26 Dose: 40 mg Documented by: Cholecalciferol (Vitamin D) [facility] Last Admin: 06/11/19 08:01 Dose: 1,000 unit Documented by: Clopidogrel Bisulfate (Plavix) 75 mg PO QHS PENDING SALE TO [facility] Last Admin: 06/10/19 21:25 Dose: 75 mg Documented by: Doxazosin Mesylate (Cardura) 4 mg PO QHS PENDING SALE TO [facility] Last Admin: 06/10/19 21:26 Dose: 4 mg Documented by: Doxycycline Monohydrate (Doxycycline) 100 mg PO BID PENDING SALE TO [facility] Last Admin: 06/11/19 09:29 Dose: 100 mg Documented by: Enteral Nutritional Formula (Ensure Surgery) 237 ml PO TIDCM PENDING SALE TO [facility] Last Admin: 06/11/19 08:00 Dose: 237 ml Documented by: Famotidine (Pepcid) 20 mg PO DAILY PENDING SALE TO [facility] Last Admin: 06/11/19 09:29 Dose: 20 mg Documented by: Sodium Chloride () 250 mls @ 15 mls/hr IV .[id number] PRN PRN Reason: Saline Flush Sodium Chloride () 250 mls @ 15 mls/hr IV .[id number] PRN PRN Reason: Additional IVPB Infusion Ketorolac Tromethamine (Toradol (Bkc)) 15 mg IV Q6H PRN PRN PRN Reason: Pain Score 1-5/10 Stop: 06/12/19 07:07 Levothyroxine Sodium (Synthroid) 137 mcg PO QHS PENDING SALE TO [facility] Last Admin: 06/10/19 21:26 Dose: 137 mcg Documented by: Meloxicam (Mobic) 7.5 mg PO BID PENDING SALE TO [facility] Morphine Sulfate () 2 - 4 mg IV Q2H PRN PRN PRN Reason: Pain Score 6-10/10 Morphine Sulfate () 2 - 4 mg IV Q2H PRN PRN PRN Reason: PAIN 6-10/10 Ondansetron HCl (Zofran) 4 mg IV Q8H PRN PRN PRN Reason: NAUSEA Oxycodone HCl (Oxyir) 5 - 10 mg PO Q4H PRN PRN PRN Reason: Pain Score 4-10/10 Promethazine HCl (Phenergan) 12.5 mg IM Q6H PRN PRN; Protocol PRN Reason: NAUSEA/VOMITING Senna/Docusate Sodium (Senokot-S, Maggi-Colace) 2 tablet PO BID [facility] Last Admin: 06/11/19 09:30 Dose: 2 tablet Documented by: Sodium Chloride () 10 - 40 ml IV UD PRN PRN Reason: SALINE FLUSH Last Admin: 06/10/19 16:32 Dose: 10 ml Documented by: Medical Necessity - Tobacco Use Smoking Status: Current every day smoker Tobacco Use: Cigarettes Assessment/Plan All Active Problems (Last Reviewed 03/10/18 @ 14:12 by Emily Mantilla) Tobacco dependence (Acute) H/O endovascular stent graft for abdominal aortic aneurysm (Acute) 1. S/P revision left total knee replacement POD #1 2. Continue Pain Medications: Tylenol and OxyIR 3. DVT Prophylaxis: Aspirin 81 mg twice daily for 4 weeks postoperatively 4. PT/OT: Weightbearing as tolerated 5. H & H: 11.0/34.0, asymptomatic 6. Reactive leukocytosis: Currently 15.7, afebrile. Patient did receive Decadron intraoperatively 7. Encouraged Incentive Spirometry 8. Disposition: Plan will be for possible discharge home today if pain is well controlled and patient is medically stable. Overall he is doing very well. Patient has tolerated therapy without any complaints. Prescriptions will be E scribed to [facility] in [place]. Patient will follow-up per postop instructions. Patient does have outpatient physical therapy established. I have reviewed the [place] Automated Rx Reporting System (OARRS) report for this patient for refill pattern and other prescriber involvement as part of the appropriate surveillance for the provision of acute and chronic controlled medications. The report was requested and reviewed on the date of this entry and was considered in the prescribing process.
[2019-06-11 16:58] VITALS: BP 101/47; PULSE 54; RESP 16; TEMP 36.6; O2SAT 97
--- NOTE | 2019-06-11 18:50 | PCM.RX.CS ---
Consult Pharmacy has been consulted to manage selected antiobiotic: Vancomycin Type of Consult: New start Suspected Infection: Other - JOINT Labs: Sodium 138 mmol/L (136-145) 06/11/19 05:04 Potassium 3.9 mmol/L (3.5-5.1) 06/11/19 05:04 Chloride 107 mmol/L (98-107) 06/11/19 05:04 Carbon Dioxide 27.0 mmol/L (21.0-32.0) 06/11/19 05:04 Anion Gap 4 (5-15) L 06/11/19 05:04 BUN 15 mg/dL (7-18) 06/11/19 05:04 Creatinine 0.76 mg/dL (0.70-1.30) 06/11/19 05:04 Est GFR (MDRD) Af Amer 132 mL/min (>60) 06/11/19 05:04 Est GFR (MDRD) Non-Af 109 mL/min (>60) 06/11/19 05:04 BUN/Creatinine Ratio 19.8 RATIO (10-20) 06/11/19 05:04 Glucose 106 mg/dL (74-106) 06/11/19 05:04 Microbiology: Microbiology 06/10/19 12:03 Other - Other Gram Stain - Final 06/10/19 12:03 Other - Other Wound Culture - Preliminary No growth-Final to follow 06/10/19 12:03 Other - Other Gram Stain - Final 06/10/19 12:03 Other - Other Wound Culture - Preliminary No growth-Final to follow 06/10/19 12:03 Other - Other Gram Stain - Final 06/10/19 12:03 Other - Other Wound Culture - Preliminary No growth-Final to follow 05/25/19 13:45 Swab (Method) Nasal Screen MRSA/MSSA - Final Weight used for dosin.8 kg Estimated Creatinine Clearance: 104.5 Goal Trough: 15-20 mcg/mL Pharmacy Plan for Drug Dosin. Will start 1250mg Q8H based on CrCl (using adjusted BW) and pt weight 2. Will schedule trough prior to 4th dose 3. Pharmacy Service will continue to monitor and adjust dosing as required. Labs to be done on [date and time ordered]: 06/12/2019 @ 2443
[2019-06-11] MEDS: Levothyroxine 137 MCG Tablet PO (21:06)
[2019-06-11] MEDS: Atorvastatin Calcium 40 MG Tablet PO (21:06)
[2019-06-11] MEDS: Clopidogrel Bisulfate 75 MG Tablet PO (21:06)
[2019-06-11] MEDS: Doxazosin 4 MG Tablet PO (21:06)
[2019-06-11 22:00] VITALS: BP 109/47; PULSE 61; RESP 16; TEMP 36.6; O2SAT 99
[2019-06-12 04:00] VITALS: BP 110/54; PULSE 68; RESP 16; TEMP 36.6; O2SAT 96
[2019-06-12] MEDS: Acetaminophen 500 MG Tablet 1000 MG PO ×2 (04:29→13:30)
[2019-06-12 05:52] LABS: Hematocrit 29.9 % (40-54); Hemoglobin 9.7 g/dL (13.0-16.5); Mean Corp Hgb Conc 32.4 g/dL (32-36); Mean Corpuscular Hgb 32.1 pg (27.0-32.0); Mean Platelet Vol. 10.9 fl (6.2-12.0); Platelet Count 171 K/mm3 (150-450); RBC Distribution Width CV 13.9 % (11.6-14.6); RBC Distribution Width SD 50.7 fl (35.1-43.9); Red Blood Count 3.02 M/mm3 (4.6-6.2); White Blood Count 9.9 K/mm3 (4.4-11.0)
--- NOTE | 2019-06-12 07:14 | PN.ORTHO_ITS ---
Subjective: The patient was sitting in bedside chair upon examination. Patient denies any chest pain, shortness of breath, dizziness, lightheadedness, nausea or vomiting, or calf pain. Pain is controlled on medications. No adverse overnight events. Overall patient is doing well. However patient did have cultures come back positive for gram-positive cocci. Infectious disease has been consulted. Vancomycin IV was ordered by Dr Himanshu Hill after discussion with the infectious disease doctor. Patient does not complain of significant pain in the knee. He has been using Tylenol for pain control Objective: Vital signs stable and afebrile. Patient is able to plantarflex and dorsiflex actively. Sensation is intact to light touch to saphenous, sural, superficial and deep peroneal, and tibial distribution. Dressing is clean dry and intact. Negative Homans bilaterally, negative signs and symptoms of DVT. - Physical Exam Vitals/I&O's: Vital Signs Temp Pulse Resp BP Pulse Ox 97.9 F 68 16 110/54 L 96 06/12/19 04:00 06/12/19 04:00 06/12/19 04:00 06/12/19 04:00 06/12/19 04:00 Oxygen Flow Rate (L/min) 6 Oxygen Delivery Method Room Air Weight: 95.8 kg Body Mass Index (BMI) 32.1 Intake and Output for Last 24 Hours 06/10/19 06/11/19 06/12/19 23:59 23:59 23:59 Intake Total 2630 / 3430 2741.25 / 2741.25 275 / 275 Balance 2630 / 3430 2741.25 / 2741.25 275 / 275 General: Alert, Oriented x3, Cooperative, No apparent distress Microbiology Past 72 Hours 06/10/19 12:03 Other - Other Gram Stain - Final 06/10/19 12:03 Other - Other Wound Culture - Preliminary No growth-Final to follow 06/10/19 12:03 Other - Other Gram Stain - Final 06/10/19 12:03 Other - Other Wound Culture - Preliminary No growth-Final to follow 06/10/19 12:03 Other - Other Gram Stain - Final 06/10/19 12:03 Other - Other Wound Culture - Preliminary No growth-Final to follow Laboratory Results 06/12/19 05:28: WBC 9.9, RBC 3.02 L, Hgb 9.7 L, Hct 29.9 L, MCV 99.0 H, MCH 32.1 H, MCHC 32.4, RDW Std Deviation 50.7 H, RDW Coeff of Katlin 13.9, Plt Count 171, MPV 10.9 Current Medications Acetaminophen (Tylenol) 1,000 mg PO Q8 [facility] Last Admin: 06/12/19 04:29 Dose: 1,000 mg Documented by: [facility]: 06/11/19 16:53 Dose: 81 mg Documented by: Atorvastatin Calcium (Lipitor) 40 mg PO QHS [facility] Last Admin: 06/11/19 21:06 Dose: 40 mg Documented by: Cholecalciferol (Vitamin D) [facility] Last Admin: 06/11/19 08:01 Dose: 1,000 unit Documented by: Clopidogrel Bisulfate (Plavix) 75 mg PO QHS [facility] Last Admin: 06/11/19 21:06 Dose: 75 mg Documented by: Doxazosin Mesylate (Cardura) 4 mg PO QHS [facility] Last Admin: 06/11/19 21:06 Dose: 4 mg Documented by: Doxycycline Monohydrate (Doxycycline) 100 mg PO BID [facility] Last Admin: 06/11/19 21:04 Dose: 100 mg Documented by: Enteral Nutritional Formula (Ensure Surgery) 237 ml PO TIDCM [facility] Last Admin: 06/11/19 16:53 Dose: 237 ml Documented by: Famotidine (Pepcid) 20 mg PO DAILY [facility] Last Admin: 06/11/19 09:29 Dose: 20 mg Documented by: Sodium Chloride () 250 mls @ 15 mls/hr IV .[id number] PRN PRN Reason: Saline Flush Last Infusion: 06/11/19 22:14 Dose: 0 mls/hr Documented by: Sodium Chloride () 250 mls @ 15 mls/hr IV .[id number] PRN PRN Reason: Additional IVPB Infusion Vancomycin HCl 1,250 mg/ (Sodium Chloride) 275 mls @ 167 mls/hr IV Q8H [facility] Last Infusion: 06/12/19 05:54 Dose: Infused Documented by: Vancomycin IV Pharmacy to Dose (1 ea/ Sodium Chloride) 500 mls @ 250 mls/hr IV X1 PRN; Protocol PRN Reason: Rx to Dose Levothyroxine Sodium (Synthroid) 137 mcg PO QHS [facility] Last Admin: 06/11/19 21:06 Dose: 137 mcg Documented by: Meloxicam (Mobic) 7.5 mg PO BID [facility] Morphine Sulfate () 2 - 4 mg IV Q2H PRN PRN PRN Reason: Pain Score 6-10/10 Morphine Sulfate () 2 - 4 mg IV Q2H PRN PRN PRN Reason: PAIN 6-10/10 Ondansetron HCl (Zofran) 4 mg IV Q8H PRN PRN PRN Reason: NAUSEA Oxycodone HCl (Oxyir) 5 - 10 mg PO Q4H PRN PRN PRN Reason: Pain Score 4-10/10 Promethazine HCl (Phenergan) 12.5 mg IM Q6H PRN PRN; Protocol PRN Reason: NAUSEA/VOMITING Senna/Docusate Sodium (Senokot-S, Maggi-Colace) 2 tablet PO BID [facility] Last Admin: 06/11/19 21:05 Dose: 2 tablet Documented by: Sodium Chloride () 10 - 40 ml IV UD PRN PRN Reason: SALINE FLUSH Last Admin: 06/10/19 16:32 Dose: 10 ml Documented by: Medical Necessity - Tobacco Use Smoking Status: Current every day smoker Tobacco Use: Cigarettes Assessment/Plan All Active Problems (Last Reviewed 03/10/18 @ 14:12 by Emily Mantilla) Tobacco dependence (Acute) H/O endovascular stent graft for abdominal aortic aneurysm (Acute) 1. S/P revision left total knee replacement POD #2 2. Continue Pain Medications: Tylenol and OxyIR 3. DVT Prophylaxis: Aspirin 81 mg twice daily for 4 weeks postoperatively 4. PT/OT: Weightbearing as tolerated 5. H & H: 9.7/29.9, asymptomatic 6. Reactive leukocytosis: Resolved, currently 9.9, afebrile. Patient did r eceive Decadron intraoperatively 7. Encouraged Incentive Spirometry 8. Consult infectious disease: Patient did have positive cultures on all 3 including gram-positive cocci. Patient currently on oral doxycycline and was placed on IV vancomycin. Appreciate input from infectious disease with further antibiotics. I discussed with the patient that upon discharge we will defer to infectious disease with regards to medications. Patient may require IV antibiotic versus oral antibiotics. 9. Disposition: Plan will be for possible discharge home today if pain depending upon infectious disease consult. Overall he is doing very well. Patient has tolerated therapy without any complaints. Prescriptions have already been E scribed to [facility] in [place]. Patient will follow-up per postop instructions. Patient does have outpatient physical therapy established. I have reviewed the [place] Automated Rx Reporting System (OARRS) report for this patient for refill pattern and other prescriber involvement as part of the appropriate surveillance for the provision of acute and chronic controlled medications. The report was requested and reviewed on the date of this entry and was considered in the prescribing process.
--- NOTE | 2019-06-12 07:19 | DCINST_ITS ---
Discharge Diet: No Restrictions Discharge Activity: May Not Drive May shower in (days): 1 - Dressing must be intact to skin, turn dressing away from water Ice area for (Minutes): 20 - Every 1-2 hours while awake Weight Bearing Status: Weight bearing as tolerated Elevate: Operative Extremity Additional Activity Instructions:: Wear elastic stockings for 2 weeks after your surgery. Call your doctor if your incision/area has: Continuous Slow Oozing, Sudden Increased Bleeding, Increased Pain/ Swelling, Increased Redness, Foul Smelling Discharge Call your doctor if you observe: Fever of 101 or Higher, Coldness, Increased Pain, Numbness or Tingling, Change in Color, Calf discomfort, Uncontrolled pain Remove Dressing in (days):: 3 - Okay to remove dressing on June 15, 2019 Additional Instructions: Follow-up per orthopedic postop instructions Allergies/Adverse Reactions: Allergies No Known Allergies Allergy (Verified 06/10/19 08:16) Medications to take at Discharge atorvastatin 40 mg tablet 40 mg PO QHS 03/10/18 clopidogrel 75 mg tablet 75 mg PO QHS 03/10/18 levothyroxine 137 mcg tablet 137 mcg PO QHS 03/10/18 Doxazosin Mesylate [Cardura] 4 mg PO QHS 03/20/18 Cholecalciferol (VIT D3) [Vitamin D3] 1,000 unit PO DAILY 05/25/19 Acetaminophen [Tylenol] 1,000 mg PO Q8 #100 tab 06/11/19 Aspirin [Aspirin, Baby] 81 mg PO BIDCM #60 tab.chew 06/11/19 Famotidine [Pepcid] 20 mg PO DAILY #30 tab 06/11/19 Oxycodone [Oxyir] 5 - 10 mg PO Q4H PRN PRN 2 Days #24 tab 06/11/19 Senna/Docusate Sodium [Senokot-S] 2 tab PO BID #10 tab 06/11/19 Ceftriaxone 2 gm IV Q24 40 Days #40 vial 06/12/19 Linezolid 600 mg PO BID 14 Days #28 tab 06/12/19 The following prescriptions were given: Aspirin [Aspirin, Baby] 81 mg PO BIDCM #60 tab.chew Transmission Status: Received by [id number][id number] Ceftriaxone 2 gm IV Q24 40 Days #40 vial Prescription Printed Linezolid 600 mg PO BID 14 Days #28 tab Transmission Status: Received by [id number][id number] Oxycodone [Oxyir] 5 - 10 mg PO Q4H PRN PRN 2 Days #24 tab PRN Reason: Pain Score 4-10/10 Transmission Status: Received by [id number] Famotidine [Pepcid] 20 mg PO DAILY #30 tab Transmission Status: Received by [id number] Senna/Docusate Sodium [Senokot-S] 2 tab PO BID #10 tab Transmission Status: Received by [id number] Acetaminophen [Tylenol] 1,000 mg PO Q8 #100 tab Transmission Status: Received by [id number] Primary Care Physician: Jud Ruiz DO [Primary Care Provider] - Test Results: Test results from this visit will be discussed in further detail at your follow-up appointment, if applicable. Please Follow Up With: [facility] When: 06/15/19 Please Follow Up With: Oseas Crawford MD When: f/u 2 weeks Please Follow Up With: Gautam Gutierrez PA-C When: 06/24/19 @ 9:30 am
[2019-06-12 08:36] VITALS: BP 102/42; PULSE 76; RESP 16; TEMP 36.9; O2SAT 98
[2019-06-12] MEDS: Doxycycline 100 MG CAPSULE PO (08:37)
[2019-06-12] MEDS: Famotidine 20 MG Tablet PO (08:38)
[2019-06-12] MEDS: Aspirin 81 MG TAB.CHEW PO (08:38)
[2019-06-12] MEDS: Meloxicam 7.5 MG Tablet PO (08:38)
[2019-06-12] MEDS: Senna/Docusate Sodium 1 Tablet 2 TABLET PO (08:38)
[2019-06-12] MEDS: Ensure Surgery 237 ML LIQUID PO ×2 (08:40→11:20)
[2019-06-12 13:33] VITALS: BP 115/50; PULSE 81; RESP 16; TEMP 36.4; O2SAT 98
--- NOTE | 2019-06-12 14:50 | PCM.HP.ID ---
Problem List (1) Infected prosthetic knee joint Status: Acute Reason for Consult: PJI Consulted by: Dr. Hill History of Present Illness: The patient is a 68 year old M with L knee unicompartment replacement 2008, had issues with chronic pain and swelling. No fever, no night sweats, no recent abx. No issues with R knee replacement. Some chronic R shoulder pain. No n/v/d. Taken to OR 06/10 for L knee conversion to total knee replacement by Dr. Hill. 3 of 3 surg cx now showing GPC on gram stain. Vanc started 06/11. Feeling fine. Pain controlled. Full ROS performed and neg except as noted above. - Medical History Surgical History: reviewed Allergies/Adverse Reactions: Allergies No Known Allergies Allergy (Verified 06/10/19 08:16) Home Medications: Ambulatory Orders Medication Instructions Recorded atorvastatin 40 mg tablet 40 mg PO QHS 03/10/18 clopidogrel 75 mg tablet 75 mg PO QHS 03/10/18 levothyroxine 137 mcg tablet 137 mcg PO QHS 03/10/18 Doxazosin Mesylate [Cardura] 4 mg PO QHS 03/20/18 Cholecalciferol (VIT D3) [Vitamin 1,000 unit PO DAILY 05/25/19 D3] Acetaminophen [Tylenol] 1,000 mg PO Q8 #100 tab 06/11/19 Aspirin [Aspirin, Baby] 81 mg PO BIDCM #60 tab.chew 06/11/19 Famotidine [Pepcid] 20 mg PO DAILY #30 tab 06/11/19 Oxycodone [Oxyir] 5 - 10 mg PO Q4H PRN PRN 2 Days 06/11/19 #24 tab Senna/Docusate Sodium [Senokot-S] 2 tab PO BID #10 tab 06/11/19 Ceftriaxone 2 gm IV Q24 40 Days #40 vial 06/12/19 Linezolid 600 mg PO BID 14 Days #28 tab 06/12/19 - Social History SMOKING STATUS:: Current every day smoker Vital Signs Temp Pulse Resp BP Pulse Ox 97.6 F L 81 16 115/50 L 98 06/12/19 13:33 06/12/19 13:33 06/12/19 13:33 06/12/19 13:33 06/12/19 13:33 Oxygen Flow Rate (L/min) 6 Oxygen Delivery Method Room Air Weight: 95.8 kg Body Mass Index (BMI) 32.1 Microbiology Past 72 Hours 06/10/19 12:03 Gram Stain - Final Other - Other Wound Culture - Preliminary No growth-Final to follow Anaerobic Culture - Preliminary No growth in 48 hours. 06/10/19 12:03 Gram Stain - Final Other - Other Wound Culture - Preliminary No growth-Final to follow Anaerobic Culture - Preliminary No growth in 48 hours. 06/10/19 12:03 Gram Stain - Final Other - Other Wound Culture - Preliminary No growth-Final to follow Anaerobic Culture - Preliminary No growth in 48 hours. Laboratory Tests Past 24 Hrs 06/12/19 05:28 WBC 9.9 RBC 3.02 L Hgb 9.7 L Hct 29.9 L MCV 99.0 H MCH 32.1 H MCHC 32.4 RDW Std Deviation 50.7 H RDW Coeff of Katlin 13.9 Plt Count 171 MPV 10.9 - Other Studies Radiology: [] reviewed Other Studies: [] Route of nutrition/ use of supplements: [] Nutritional Intake: [] IV Site: [] Gilmore Catheter: [] - Physical Exam General: Alert, Oriented x3, Cooperative HEENT: Atraumatic, PERRLA, EOMI Neck: Supple, No Nodes Lungs: Clear to auscultation, Normal air movement Cardiovascular: Regular rate, Regular Rhythm, Murmur Abdomen: Soft, Non Tender, Non-Distended Extremities: No edema Skin: Incision - L knee wrapped IV Site: Peripheral, without redness Musculoskeletal: No Tenderness to Palpation of Joints or Extremities Neurological: Cranial nerves II-XII grossly intact - Assessment/Plan Antibiotics: [] Assessment/Plan: [] L knee GPC PJI - now s/p total knee 06/10/[address] Hill. Surg cx pending, requested micro lab hold cxs for 14 days. On vanc, will add ceftriaxone. Will order picc. Trying to get him out of the hospital today. Plan at this point will be for po linezolid and iv ceftriaxone 2gm qday dosed at infusion center. Weekly bmp, cbc, and esr. If this cannot be arranged, will have him continue vanc/ceftriaxone while inpatient. Will follow, thank you, d/w correctional counselor/case manager. ID followup with me within 2 weeks.
--- NOTE | 2019-06-12 15:24 | CASEMGMT ---
HAMILTON BRODY NOTE: Per Dr Crawford, pt will need IV Ceftriaxone Q 24 hrs, and that pt would like to go to [facility] for Out-pt IV infusion, with 1st Out-pt infusion being due tomorrow 06/13. HAMILTON BRODY to room to talk with pt. Introduced self and role of HAMILTON BRODY. Pt confirms that he would like to go to [facility]. Call placed to [facility] @ [facility]. Per Shara, Dr Crawford would need hospital privileges @ [facility] to be able to follow pt or pt's PCP or [facility]'s Hospitalist would need to be agreeable to resuming care for pt. Per Dr Crawford, he does not have privileges @ [facility] specifically. Dr Crawford attempted to contact [facility]'s hospitalist, Dr Huffman, with no success. Dr Crawford spoke with pt and pt agreeable to going to [facility] Out-pt Infusion center. HAMILTON BRODY spoke with pt and he confirmed he is agreeable to going to [facility] OP Infusion Center, but that he would still like to switch to [facility] next week, if possible, as it is closer to his home. HAMILTON BRODY instructed him to talk with [facility] OP infusion center on Saturday to inquire about setting up OP infusion @ [facility]. He voices understanding. Call placed to Nata @ [facility] Out-pt infusion center. She was made aware of need for new OP antibiotic infusion set up for daily IV Ceftriaxone x 41 doses, with 1st OP dose being due 06/12/19. She was made aware last dose Ceftriaxone was today @ 1422. Order for IV Ceftriaxone obtained from Dr Crawford and faxed to [facility] OP infusion center at this time, along with insurance information, and demographics. Per Nata, they are able to take pt and pt scheduled for 1st OP IV infusion 06/13/19 @ 1400. Nata made aware that pt would like to talk to her next week about setting up OP infusion at [facility]. Instructions for week and weekend routine (where to arrive @ [facility] for IV infusions) received from [facility] OP Infusion center and given to pt. This was reviewed with him and he denies having any questions. Call placed back to Shara @ [facility] and she was made aware pt will not be coming there for OP infusions at this time. Roxanna BRITTN RN CM
--- NOTE | 2019-06-24 14:43 | PCM.DC.SUM ---
Discharge Date and Diagnosis Date of Admission: 06/10/19 Date of Discharge: 06/12/19 - Primary Discharge Diagnosis Painful left partial knee replacement Hospital Course and Treatment Infectious disease Operations: total knee replacement - Revision left total knee replacement Procedures: PICC line placement Summary of Care Provided: The patient is a 68 year old M presented to the hospital after negative work-up for infection for revision left partial knee replacement to total knee replacement due to painful partial left total knee replacement and progression of osteoarthritis. Surgery went well patient was taken up to the floor. On postop day 1 Gram stain's were reviewed showing 3 of them with gram-positive cocci. Infectious disease was consulted. Patient did well with physical therapy had no major problems. Upon infectious disease recommendations patient was set up for vancomycin IV as an outpatient. Once his antibiotics were arranged cultures still remain negative. At this time he was discharged home on vancomycin. These cultures were unexpected finding during surgery as he had a negative work-up for infection. Still would consider contamination based on the lack of growth however with 3 out of 3 gram stains it should not be ignored. Patient has follow-up with infectious disease 2 weeks postop. Patient has follow-up with orthopedics 2-week postop. We will continue to follow cultures. - Physical Exam Vitals/I&O's: Vital Signs Temp Pulse Resp BP Pulse Ox 97.6 F L 81 16 115/50 L 98 06/12/19 13:33 06/12/19 13:33 06/12/19 13:33 06/12/19 13:33 06/12/19 13:33 Oxygen Flow Rate (L/min) 6 Oxygen Delivery Method Room Air Weight: 211 lb 3.245 oz Body Mass Index (BMI) 32.1 General: Alert, Oriented x3, Cooperative Extremities: - - Left lower extremity: Dressing is clean dry and intact Sensations intact to light touch saphenous, sural, superficial peroneal, deep peroneal, and tibial distributions Motors intact EHL, DF, PF calves are soft and supple Microbiology Past 72 Hours 06/10/19 12:03 Other - Other Gram Stain - Final 06/10/19 12:03 Other - Other Wound Culture - Final No growth aerobically. 06/10/19 12:03 Other - Other Anaerobic Culture - Final No growth in 5 days. 06/10/19 12:03 Other - Other Gram Stain - Final 06/10/19 12:03 Other - Other Wound Culture - Final No growth aerobically. 06/10/19 12:03 Other - Other Anaerobic Culture - Final No growth in 5 days. 06/10/19 12:03 Other - Other Gram Stain - Final 06/10/19 12:03 Other - Other Wound Culture - Final No growth aerobically. 06/10/19 12:03 Other - Other Anaerobic Culture - Final No growth in 5 days. Discharge Diet: No Restrictions Discharge Activity: May Not Drive May shower in (days): 1 - Dressing must be intact to skin, turn dressing away from water Ice area for (Minutes): 20 - Every 1-2 hours while awake Weight Bearing Status: Weight bearing as tolerated Keep extremity elevated above heart level: Operative Extremity Additional Activity Instructions:: Wear elastic stockings for 2 weeks after your surgery. Call your doctor if your incision/area has: Continuous Slow Oozing, Sudden Increased Bleeding, Increased Pain/ Swelling, Increased Redness, Foul Smelling Discharge Call your doctor if you observe: Fever of 101 or Higher, Coldness, Increased Pain, Numbness or Tingling, Change in Color, Calf discomfort, Uncontrolled pain Remove Dressing in (days):: 3 - Okay to remove dressing on June 15, 2019 Home Medications: Medications to take at Discharge atorvastatin 40 mg tablet 40 mg PO QHS 03/10/18 clopidogrel 75 mg tablet 75 mg PO QHS 03/10/18 levothyroxine 137 mcg tablet 137 mcg PO QHS 03/10/18 Doxazosin Mesylate [Cardura] 4 mg PO QHS 03/20/18 Cholecalciferol (VIT D3) [Vitamin D3] 1,000 unit PO DAILY 05/25/19 Acetaminophen [Tylenol] 1,000 mg PO Q8 #100 tab 06/11/19 Aspirin [Aspirin, Baby] 81 mg PO BIDCM #60 tab.chew 06/11/19 Famotidine [Pepcid] 20 mg PO DAILY #30 tab 06/11/19 Senna/Docusate Sodium [Senokot-S] 2 tab PO BID #10 tab 06/11/19 Ceftriaxone 2 gm IV Q24 40 Days #40 vial 06/12/19 Linezolid 600 mg PO BID 14 Days #28 tab 06/12/19 Following Prescrptions Were Given to Patient: Aspirin [Aspirin, Baby] 81 mg PO BIDCM #60 tab.chew Transmission Status: [facility] by [id number] Ceftriaxone 2 gm IV Q24 40 Days #40 vial Prescription Printed Linezolid 600 mg PO BID 14 Days #28 tab Transmission Status: Received by [id number] Famotidine [Pepcid] 20 mg PO DAILY #30 tab Transmission Status: Received by [id number] Senna/Docusate Sodium [Senokot-S] 2 tab PO BID #10 tab Transmission Status: Received by [id number] Acetaminophen [Tylenol] 1,000 mg PO Q8 #100 tab Transmission Status: Received by [id number] Primary Care Physician: Jud Ruiz DO [Primary Care Provider] - Please Follow Up With: [facility] When: 06/15/19 Please Follow Up With: Oseas Crawford MD When: f/u 2 weeks Please Follow Up With: Gautam Gutierrez PA-C When: 06/24/19 @ 9:30 am Additional Instructions: Follow-up per orthopedic postop instructions Medical Necessity - Tobacco Use Smoking Status: Current every day smoker Tobacco Use: Cigarettes Meaningful Use Info Meaningful Use Diagnoses (Choose all that apply): None applicable
== END 2019-06-12 16:25 | disposition home or self-care (01) | DRG 467 ==
LOC: ACINP 08:03 → MS3 06-11 08:33
PROVIDERS: Anesthesiology; Admitting Provider Specialist; PCP Family Medicine; Referring Provider Specialist; Visit Provider Specialist
PROC: 0SRD0JZ Replacement of Left Knee Joint with Synthetic Substitute, Open Approach (ICD-10-PCS; CPT 27447; principal; 2019-06-10 09:45)
DX: M17.12 Unilateral primary osteoarthritis, left knee (principal); T84.84XA Pain due to internal orthopedic prosthetic devices, implants and grafts, initial encounter; T84.54XA Infection and inflammatory reaction due to internal left knee prosthesis, initial encounter; Z96.651 Presence of right artificial knee joint; Z95.5 Presence of coronary angioplasty implant and graft; E78.00 Pure hypercholesterolemia, unspecified; F17.210 Nicotine dependence, cigarettes, uncomplicated; Z79.899 Other long term (current) drug therapy; I71.4 Abdominal aortic aneurysm, without rupture; E03.9 Hypothyroidism, unspecified; I25.10 Atherosclerotic heart disease of native coronary artery without angina pectoris; D72.828 Other elevated white blood cell count; B96.89 Other specified bacterial agents as the cause of diseases classified elsewhere; B99.8 Other infectious disease
CPT/HCPCS: 36415; 36569; 73560; 80048; 82040; 82962; 84443; 85025; 85027; 85652; 86140; 87015; 87070; 87075; 87081; 87102; 87116; 87205; 87206; 93005; 97110; 97162; 97166; 97530; 97535; 99251; 99406; C1776; J7050; J7120; A4216; G0463; J0696

== ENCOUNTER 2019-06-13 14:07 | Outpatient (CLI) | payer MEDICARE, BC, SELFPAY ==
[2019-06-10 14:24] VITALS: BMI 32.1
[2019-06-13 14:24] VITALS: BP 106/59; PULSE 91; RESP 16; TEMP 36.8; O2SAT 99
[2019-06-13] MEDS: 0.9% Saline Lock 10 ML Syringe IV ×2 (14:48→15:16)
== END 2019-06-13 15:25 | disposition home or self-care (01) ==
LOC: MEDOUTP 14:07 → MS3 14:27
PROVIDERS: PCP Family Medicine; Visit Provider Internal Medicine Infectious Disease
DX: T84.54XA Infection and inflammatory reaction due to internal left knee prosthesis, initial encounter (principal); Z96.652 Presence of left artificial knee joint
CPT/HCPCS: 96365; J7050; A4216; J0696

== ENCOUNTER 2019-06-14 13:48 | Outpatient (CLI) | payer MEDICARE, BC, SELFPAY ==
[2019-06-10 14:24] VITALS: BMI 32.1
[2019-06-14 14:21] VITALS: BP 99/49; PULSE 67; RESP 18; TEMP 36.9; O2SAT 99
[2019-06-14] MEDS: 0.9% Saline Lock 10 ML Syringe IV ×2 (15:15→15:16)
== END 2019-06-14 15:30 | disposition home or self-care (01) ==
LOC: MEDOUTP 13:56 → MS3 13:56
PROVIDERS: PCP Family Medicine; Visit Provider Internal Medicine Infectious Disease
DX: T84.54XA Infection and inflammatory reaction due to internal left knee prosthesis, initial encounter (principal); Z96.652 Presence of left artificial knee joint
CPT/HCPCS: 96365; A4216; J0696

== ENCOUNTER → 2019-06-15 | Outpatient (CLI) | payer MEDICARE, BC, SELFPAY ==
[2019-06-10 14:24] VITALS: BMI 32.1
[2019-06-15 13:56] VITALS: BP 114/54; PULSE 70; RESP 18; TEMP 36.8; O2SAT 98; BMI 31.9
[2019-06-15 15:08] VITALS: BP 105/68; PULSE 65; RESP 16; O2SAT 98
== END | disposition home or self-care (01) ==
PROVIDERS: PCP Family Medicine; Referring Provider Internal Medicine Infectious Disease; Visit Provider Internal Medicine Infectious Disease
DX: T84.54XA Infection and inflammatory reaction due to internal left knee prosthesis, initial encounter (principal); Z96.652 Presence of left artificial knee joint
CPT/HCPCS: 96365; J7040; A4216; J0696

== ENCOUNTER → 2019-06-16 | Outpatient (CLI) | payer MEDICARE, BC, SELFPAY ==
[2019-06-15 13:56] VITALS: BMI 31.9
[2019-06-16 12:58] VITALS: BP 121/84; PULSE 67; RESP 16; TEMP 36.9; O2SAT 98; BMI 31.9
== END | disposition home or self-care (01) ==
LOC: MEDOUTP 12:48
PROVIDERS: PCP Family Medicine; Referring Provider Internal Medicine Infectious Disease; Visit Provider Internal Medicine Infectious Disease
DX: T84.54XA Infection and inflammatory reaction due to internal left knee prosthesis, initial encounter (principal); Z96.652 Presence of left artificial knee joint
CPT/HCPCS: 96365; J7050; A4216; J0696